=== PATIENT | female | born 1995 | race Caucasian/White ===

== ENCOUNTER → 2020-08-29 | Outpatient (CLI) | payer BC ==
[2020-08-29 09:29] LABS: BASOPHILS % 0.9 % (0.0-2.0); EOSINOPHILS % 1.5 % (0.0-5.0); HEMATOCRIT. 41.2 % (36.0-48.0); HEMOGLOBIN. 14.1 g/dL (12.0-16.0); LYMPHOCYTES % 31.8 % (20.0-50.0); MEAN CORPUSCULAR HEMOGLOBIN 29.9 pg (28.0-32.0); MEAN CORPUSCULAR VOLUME 87.4 fL (81.0-99.0); MEAN PLATELET VOLUME 7.6 fl (7.4-10.4); MONOCYTES % 4.6 % (2.0-8.0); NEUTROPHILS % 61.2 % (40.0-76.0); PLATELET 270 x1000/uL (130-400); RED BLOOD CELL COUNT 4.72 mill/uL (4.2-5.4); RED CELL DISTRIBUTION WIDTH 12.4 % (11.6-14.6)
[2020-08-29 09:47] LABS: CHLORIDE 103 mEq/L (98-107)
[2020-08-29 09:54] LABS: LDL CHOLESTEROL 146 mg/dL (5-100)
[2020-08-29 09:55] LABS: HDL CHOLESTEROL 43 mg/dL (40-59)
[2020-08-29 10:09] LABS: CLARITY URINE CLEAR (CLEAR); COLOR URINE YELLOW (YELLOW); KETONES URINE NEGATIVE (NEGATIVE); LEUKOCYTE ESTERASE URINE NEGATIVE (NEGATIVE); NITRITE URINE NEGATIVE (NEGATIVE); OCCULT BLOOD URINE NEGATIVE (NEGATIVE); PROTEIN URINE NEGATIVE (NEGATIVE); SPECIFIC GRAVITY URINE 1.011 (1.005-1.030); UROBILINOGEN URINE 0.2 E.U./dL (0.2-1.0)
== END | disposition home or self-care (01) ==
LOC: LAB 09:01
PROVIDERS: ATTEND Internal Medicine
DX: Z00.00 Encounter for general adult medical examination without abnormal findings (principal)
CPT/HCPCS: 36415; 80053; 80061; 81003; 83036; 84443; 85025; 86592; 86701; 86702

== ENCOUNTER → 2020-11-04 | Outpatient (CLI) | payer BC ==
[2020-11-04 10:34] LABS: CLARITY URINE CLEAR (CLEAR); COLOR URINE YELLOW (YELLOW); KETONES URINE NEGATIVE (NEGATIVE); LEUKOCYTE ESTERASE URINE NEGATIVE (NEGATIVE); NITRITE URINE NEGATIVE (NEGATIVE); OCCULT BLOOD URINE NEGATIVE (NEGATIVE); PH URINE 7.5 (4.5-8.0); PROTEIN URINE NEGATIVE (NEGATIVE); SPECIFIC GRAVITY URINE 1.005 (1.005-1.030); UROBILINOGEN URINE 0.2 E.U./dL (0.2-1.0)
== END | disposition home or self-care (01) ==
LOC: LAB 10-31 13:19
PROVIDERS: ATTEND Internal Medicine
DX: R30.0 Dysuria (principal)
CPT/HCPCS: 81003

== ENCOUNTER → 2020-11-07 | Outpatient (CLI) | payer BC | END | disposition home or self-care (01) | LOC: US 07:31 | PROVIDERS: ATTEND Internal Medicine | DX: K76.0 Fatty (change of) liver, not elsewhere classified (principal) | CPT/HCPCS: 76705 ==

== ENCOUNTER → 2021-02-23 | Outpatient (CLI) | payer BC ==
[2021-02-23 12:13] LABS: CHLORIDE 104 mEq/L (98-107)
== END | disposition home or self-care (01) ==
LOC: LAB 11:02
PROVIDERS: ATTEND Internal Medicine
DX: R74.01 Elevation of levels of liver transaminase levels (principal)
CPT/HCPCS: 36415; 80048; 80076

== ENCOUNTER → 2021-04-30 | Outpatient (CLI) | payer BC ==
[2021-04-30 13:08] LABS: CHLORIDE 102 mEq/L (98-107)
[2021-04-30 13:17] LABS: LDL CHOLESTEROL 125 mg/dL (5-100)
[2021-04-30 13:19] LABS: HDL CHOLESTEROL 47 mg/dL (40-59)
== END | disposition home or self-care (01) ==
LOC: LAB 12:41
PROVIDERS: ATTEND Internal Medicine
DX: E11.9 Type 2 diabetes mellitus without complications (principal); E78.5 Hyperlipidemia, unspecified
CPT/HCPCS: 36415; 80053; 80061; 83036

== ENCOUNTER → 2021-07-28 | Outpatient (CLI) | payer BC ==
[2021-07-28 12:00] LABS: CHLORIDE 107 mEq/L (98-107)
[2021-07-28 12:08] LABS: LDL CHOLESTEROL 93 mg/dL (5-100)
[2021-07-28 12:14] LABS: HDL CHOLESTEROL 44 mg/dL (40-59)
== END | disposition home or self-care (01) ==
LOC: LAB 10:47
PROVIDERS: ATTEND Internal Medicine
DX: E11.9 Type 2 diabetes mellitus without complications (principal); E78.5 Hyperlipidemia, unspecified; R74.01 Elevation of levels of liver transaminase levels
CPT/HCPCS: 36415; 80048; 80061; 80076; 83036

== ENCOUNTER → 2021-09-02 | Outpatient (CLI) | payer BC ==
[2021-09-02 08:50] LABS: CHLORIDE 103 mEq/L (98-107)
== END | disposition home or self-care (01) ==
LOC: LAB 08:12
PROVIDERS: ATTEND Internal Medicine
DX: E11.9 Type 2 diabetes mellitus without complications (principal); R74.01 Elevation of levels of liver transaminase levels; E78.5 Hyperlipidemia, unspecified
CPT/HCPCS: 36415; 80048; 80076

== ENCOUNTER → 2022-02-07 | Outpatient (CLI) | payer BC ==
[2022-02-07 10:20] LABS: BASOPHILS % 0.6 % (0.0-2.0); EOSINOPHILS % 0.8 % (0.0-5.0); HEMATOCRIT. 38.3 % (36.0-48.0); HEMOGLOBIN. 12.6 g/dL (12.0-16.0); LYMPHOCYTES % 23.5 % (20.0-50.0); MEAN CORPUSCULAR HEMOGLOBIN 27.9 pg (28.0-32.0); MEAN CORPUSCULAR VOLUME 84.7 fL (81.0-99.0); MEAN PLATELET VOLUME 7.5 fl (7.4-10.4); MONOCYTES % 3.6 % (2.0-8.0); NEUTROPHILS % 71.5 % (40.0-76.0); PLATELET 294 x1000/uL (130-400); RED BLOOD CELL COUNT 4.52 mill/uL (4.2-5.4); RED CELL DISTRIBUTION WIDTH 13.8 % (11.6-14.6)
[2022-02-07 10:48] LABS: CHLORIDE 103 mEq/L (98-107)
[2022-02-07 11:02] LABS: HDL CHOLESTEROL 51 mg/dL (40-59); LDL CHOLESTEROL 117 mg/dL (5-100)
[2022-02-08 07:10] LABS: *CREATININE RANDOM URINE 20.1 mg/dL (Not Estab.); MICROALBUMIN RANDOM URINE 12.3 ug/mL (Not Estab.)
== END | disposition home or self-care (01) ==
LOC: LAB 09:32
PROVIDERS: ATTEND Internal Medicine Endocrinology, Diabetes & Metabolism
DX: I10 Essential (primary) hypertension (principal); E11.9 Type 2 diabetes mellitus without complications; E78.5 Hyperlipidemia, unspecified; E66.01 Morbid (severe) obesity due to excess calories
CPT/HCPCS: 36415; 80053; 80061; 82043; 82570; 83036; 84439; 84443; 85025

== ENCOUNTER 2022-06-07 21:30 | Emergency (ER) | payer BC ==
[~2022-06-07] VITALS: Ht 165.1 cm; Wt 109.4 kg
[2022-06-07 22:44] VITALS: BP 165/98
== END 2022-06-08 01:10 | disposition left against medical advice (07) ==
LOC: ER 21:30
DX: Z53.21 Procedure and treatment not carried out due to patient leaving prior to being seen by health care provider (principal)
CPT/HCPCS: 82962

== ENCOUNTER → 2022-06-09 | Outpatient (CLI) | payer BC ==
[2022-06-09 17:05] LABS: BASOPHILS % 0.7 % (0.0-2.0); EOSINOPHILS % 0.3 % (0.0-5.0); HEMATOCRIT. 41.4 % (36.0-48.0); HEMOGLOBIN. 13.6 g/dL (12.0-16.0); LYMPHOCYTES % 33.3 % (20.0-50.0); MEAN CORPUSCULAR HEMOGLOBIN 28.2 pg (28.0-32.0); MEAN PLATELET VOLUME 7.4 fl (7.4-10.4); MONOCYTES % 5.2 % (2.0-8.0); NEUTROPHILS % 60.5 % (40.0-76.0); PLATELET 295 x1000/uL (130-400); RED BLOOD CELL COUNT 4.81 mill/uL (4.2-5.4); RED CELL DISTRIBUTION WIDTH 15.2 % (11.6-14.6)
[2022-06-10 01:15] LABS: CHLORIDE 105 mEq/L (98-107)
[2022-06-10 01:33] LABS: HDL CHOLESTEROL 48 mg/dL (40-59); LDL CHOLESTEROL 95 mg/dL (5-100)
== END | disposition home or self-care (01) ==
LOC: LAB 16:35
PROVIDERS: ATTEND Internal Medicine Endocrinology, Diabetes & Metabolism
DX: I10 Essential (primary) hypertension (principal); E11.9 Type 2 diabetes mellitus without complications; E78.5 Hyperlipidemia, unspecified
CPT/HCPCS: 36415; 80053; 80061; 83036; 85025